=== PATIENT | male | born 1990 | race Caucasian/White ===

== ENCOUNTER 2020-05-03 12:28 | Emergency (ER) | payer OTHER ==
[2020-05-03 12:44] VITALS: RESP 18
[2020-05-03] MEDS ORDERED: SODIUM CHLORIDE 0.9% 500 ML 500 ML IV STA (13:10)
[2020-05-03] MEDS ORDERED: ASPIRIN 81 MG PO STA (13:11)
[2020-05-03 13:23] LABS: Basophils % (A) 1 %; Eosinophils # (A) 0.1 k/uL (0-0.7); Eosinophils % (A) 1 %; HGB 13.5 gm/dL (13.0-17.5); Lymphocytes # (A) 1.4 k/uL (1.0-4.8); Lymphocytes % (A) 24 %; MCH 29.8 pg (25.0-35.0); MCHC 33.7 g/dL (31.0-37.0); MCV 88.4 fL (80.0-100.0); Mean Platelet Volume 7.4; Monocytes # (A) 0.3 k/uL (0-1.0); Monocytes % (A) 6 %; Neutrophils # (A) 3.9 k/uL (1.3-7.7); Neutrophils % (A) 66 %; Platelet Count 310 k/uL (150-450); RBC 4.52 m/uL (4.30-5.90); RDW 14.1 % (11.5-15.5); WBC 5.8 k/uL (3.8-10.6)
[2020-05-03 13:31] LABS: ALT 25 U/L (4-49); African American GFR (CKD) >90 (>60 ml/min/1.73 sqM); Albumin 4.5 g/dL (3.5-5.0); Anion Gap 8 mmol/L; Blood Urea Nitrogen 12 mg/dL (9-20); Calcium 9.7 mg/dL (8.4-10.2); Carbon Dioxide 28 mmol/L (22-30); Chloride 103 mmol/L (98-107); Glucose 104 mg/dL (74-99); Non-African American GFR(CKD) >90 (>60 ml/min/1.73 sqM); Partial Thromboplastin Time 25.9 sec (22.0-30.0); Prothrombin Time 10.7 sec (9.0-12.0); Sodium 139 mmol/L (137-145); Total Bilirubin 0.7 mg/dL (0.2-1.3); Total Protein 7.5 g/dL (6.3-8.2)
[2020-05-03 13:50] LABS: AST 34 U/L (17-59); Alkaline Phosphatase 77 U/L (38-126); Magnesium 2.1 mg/dL (1.6-2.3); Potassium 4.1 mmol/L (3.5-5.1)
--- NOTE | 2020-05-03 14:11 | CT ---
EXAMINATION TYPE: CT chest angio for PE DATE OF EXAM: 05/03/2020 COMPARISON: None HISTORY: Suspected pulmonary embolus. Chest pain. Vomiting. CONTRAST: CT Chest for pulmonary embolism performed with with IV Contrast, patient injected with 100 mL of Isov ue 370. MIP images were generated on a separate workstation. FINDINGS: LUNGS: The lungs are grossly clear, there is no concerning parenchymal mass or nodule identified. Mi nimal bibasilar atelectasis. There is no pleural effusion or pneumothorax seen. The tracheobronchial tree is patent. MEDIASTINUM: There is satisfactory enhancement of the pulmonary artery and its branches, there is no CT evidence for pulmonary embolism. No thoracic aortic aneurysm. There are no greater than 1 cm julián r or mediastinal lymph nodes. Cardiac size normal. No pericardial effusion is seen. OTHER: No additional significant abnormality is seen. Incomplete visualization of the bilateral adre nal glands. IMPRESSION: No evidence of pulmonary embolus or acute pulmonary process.
[2020-05-03] MEDS ORDERED: LORazepam 1 MG TAB PO STA ×2 (14:35→16:05)
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
[2020-05-03 16:51] VITALS: PULSE 78
[2020-05-03 17:08] LABS: Appearance,Urine Clear (Clear); Bilirubin,Urine Negative (Negative); Blood,Urine Negative (Negative); Color,Urine Light Yellow; Glucose,Urine (UA) Negative (Negative); Ketones,Urine Negative (Negative); Leukocyte Esterase,Urine Negative (Negative); Nitrite,Urine Negative (Negative); PH, Urine 8.5 (5.0-8.0); Protein,Urine Negative (Negative); Specific Gravity,Urine 1.037 (1.001-1.035); Urobilinogen,Urine <2.0 mg/dL (<2.0)
[2020-05-03 17:27] VITALS: BP 119/83; TEMP 97.3
== END 2020-05-03 17:18 | disposition home or self-care (01) ==
LOC: EC 12:28
DX: F41.9 Anxiety disorder, unspecified (principal); R07.89 Other chest pain; F32.9 Major depressive disorder, single episode, unspecified; T79.A0XA Compartment syndrome, unspecified, initial encounter; S70.12XA Contusion of left thigh, initial encounter; F17.200 Nicotine dependence, unspecified, uncomplicated; Z79.899 Other long term (current) drug therapy; Z53.29 Procedure and treatment not carried out because of patient's decision for other reasons; Z20.828 Contact with and (suspected) exposure to other viral communicable diseases; W19.XXXA Unspecified fall, initial encounter
CPT/HCPCS: 36415; 93005; 83880; 80053; 83735; 84484; 85025; 85610; 85730; 81003; 87040; 71275; 99285; U0003; Q9967

== ENCOUNTER 2020-05-07 23:41 | Emergency (ER) | payer OTHER ==
[2020-05-07 23:53] VITALS: TEMP 98.1
[2020-05-08 00:02] VITALS: BP 140/70; PULSE 100; RESP 18
[2020-05-08] MEDS ORDERED: LORazepam 2 MG/ML INJ IM STA (00:06)
--- NOTE | 2020-05-08 00:11 | ED ---
General Adult HPI - General Chief complaint: Anxiety Stated complaint: anxiety Time Seen by Provider: 05/07/20 23:59 Source: patient, family, RN notes reviewed Mode of arrival: ambulatory Limitations: no limitations - History of Present Illness Initial comments: 29-year-old male with a past medical history of PE in November presents to the emergency department for anxiety. Patient reports that he moved to this area week and a half ago and in his move lost all of his anxiety and depression medications. Patient reports he was supposed be taking Klonopin 3 times a day as well as when necessary anxiety meds. Patient reports that he was seen here. Given antianxiety medication and he did feel improvement however anxiety started again a couple days ago. Patient states he is very shaky and feels very on edge. Patient does have a history of PE in November 2023 which he refuses to take Xarelto. - Related Data Home Medications Medication Instructions Recorded Confirmed Sertraline HCl [Zoloft] 200 mg PO DAILY 05/03/20 05/03/20 buPROPion XL [Wellbutrin Xl] 300 mg PO DAILY 05/03/20 05/03/20 clonazePAM 1 mg PO TID 05/03/20 05/03/20 Previous Rx's Medication Instructions Recorded Sertraline [Zoloft] 200 mg PO DAILY 7 Days #14 tab 05/03/20 Allergies Allergy/AdvReac Type Severity Reaction Status Date / Time No Known Allergies Allergy Verified 05/07/20 23:52 Review of Systems ROS Statement: Those systems with pertinent positive or pertinent negative responses have been documented in the HPI. ROS Other: All systems not noted in ROS Statement are negative. Past Medical History Past Medical History: Pulmonary Embolus (PE) Additional Past Medical History / Comment(s): PE 2019 History of Any Multi-Drug Resistant Organisms: None Reported Past Surgical History: No Surgical Hx Reported Additional Past Surgical History / Comment(s): Right upper leg Fasciotomy 2019 Past Psychological History: Anxiety, Depression Smoking Status: Current some day smoker Past Alcohol Use History: None Reported Past Drug Use History: Marijuana General Exam Limitations: no limitations General appearance: anxious Head exam: Present: atraumatic, normocephalic, normal inspection Eye exam: Present: normal appearance, PERRL, EOMI. Absent: scleral icterus, conjunctival injection, periorbital swelling ENT exam: Present: normal exam, mucous membranes moist Neck exam: Present: normal inspection, full ROM. Absent: tenderness, meningismus, lymphadenopathy Respiratory exam: Present: normal lung sounds bilaterally. Absent: respiratory distress, wheezes, rales, rhonchi, stridor Cardiovascular Exam: Present: regular rate, normal rhythm, normal heart sounds. Absent: systolic murmur, diastolic murmur, rubs, gallop, clicks GI/Abdominal exam: Present: soft, normal bowel sounds. Absent: distended, tenderness, guarding, rebound, rigid Neurological exam: Present: alert Psychiatric exam: Present: anxious Course Vital Signs 05/07/20 05/08/20 23:46 00:00 Temperature 98.1 F Pulse Rate 87 100 Respiratory 22 18 Rate Blood Pressure 104/66 140/70 O2 Sat by Pulse 100 95 Oximetry Medical Decision Making - Medical Decision Making Patient had a CT of the chest obtained about 4 days ago that showed no evidence of pulmonary embolism or acute pulmonary process. Laboratory examination at that time was also unremarkable. Spangler virus negative. Patient was given oral Ativan for anxiety. He has a maps score greater than 600 and reports he lost his medication. Patient is requesting a new prescription. Patient is aware that he will not be given a new prescription and needs to follow-up with his doctor for this. Disposition Clinical Impression: Acute anxiety Disposition: HOME SELF-CARE Condition: Good Instructions (If sedation given, give patient instructions): Generalized Anxiety Disorder (ED) Additional Instructions: Please follow-up with your primary care provider for your anxiety medication refill. Return to the emergency room for worsening symptoms. Is patient prescribed a controlled substance at d/c from ED?: No Referrals: Kaela Aabrca MD [REFERRING] - 1-2 days Time of Disposition: 00:36
[2020-05-08] MEDS ORDERED: LORazepam 1 MG TAB PO STA (00:13)
== END 2020-05-08 00:48 | disposition home or self-care (01) ==
LOC: EC 23:41
DX: F41.9 Anxiety disorder, unspecified (principal); F32.9 Major depressive disorder, single episode, unspecified; F17.200 Nicotine dependence, unspecified, uncomplicated; Z79.899 Other long term (current) drug therapy; Z86.711 Personal history of pulmonary embolism
CPT/HCPCS: 99283

== ENCOUNTER 2020-06-23 15:10 | Emergency (ER) | payer OTHER ==
[2020-06-23 15:19] VITALS: RESP 16
[2020-06-23] MEDS ORDERED: ALPRAZolam 1 MG TAB PO STA (15:28)
[2020-06-23] MEDS ORDERED: CEPHALEXIN 500 MG CAP PO STA (15:28)
--- NOTE | 2020-06-23 15:30 | ED ---
General Adult HPI - General Chief complaint: Extremity Problem,Nontraumatic Stated complaint: L Ankle Swelling Time Seen by Provider: 06/23/20 15:22 Source: patient Mode of arrival: ambulatory Limitations: no limitations - History of Present Illness Initial comments: Dictation was produced using [employer] dictation software. please excuse any grammatical, word or spelling errors. This patient was cared for during a federal and state declared state of emergency secondary to Covid 19 Chief Complaint: 29-year-old male with past medical history of right leg fasciotomy, but infection presents with left lower leg pain. 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 He has history of right lower extremity infection requiring fasciotomy. Patient states that today he noted that there was some drainage and pain to right over his left heel. He is concerned that he is having another repeat event of lower extremity infection. Patient denies any constitutional symptoms. He states that he works on his feet and has ill fitting shoes that caused the skin breakdown to his left heel. The ROS documented in this emergency department record has been reviewed and confirmed by me. Those systems with pertinent positive or negative responses have been documented in the HPI. All other systems are other negative and/or noncontributory. PHYSICAL EXAM: General Impression: Alert and oriented x3, not in acute distress HEENT: Normocephalic atraumatic, extra-ocular movements intact, pupils equal and reactive to light bilaterally, mucous membranes moist. Cardiovascular: Heart regular rate and rhythm Chest: Able to complete full sentences, no retractions, no tachypnea Abdomen: abdomen soft, non-tender, non-distended, no organomegaly Musculoskeletal: Pulses present and equal in all extremities, no peripheral edema Left heel: Abrasion to the skin just over the distal Achilles insertion, there is mild warmth and erythema to the area, no fluctuance Motor: no focal deficits noted Neurological: CN II-XII grossly intact, no focal motor or sensory deficits noted Skin: Intact with no visualized rashes Psych: Normal affect and mood ED course: 29-year-old male presents with cellulitic symptoms of the left lower extremity. As upon arrival are within acceptable limits. Patient states he feels anxious. Patient given Xanax and Keflex X-rays unremarkable. There does appear to be soft tissue swelling. Patient given prescription for Keflex. He is advised follow-up with his primary care physician upon arrival. Return parameters discussed. Patient will be discharged. - Related Data Home Medications Medication Instructions Recorded Confirmed Sertraline HCl [Zoloft] 200 mg PO DAILY 05/03/20 05/03/20 buPROPion XL [Wellbutrin Xl] 300 mg PO DAILY 05/03/20 05/03/20 clonazePAM 1 mg PO TID 05/03/20 05/03/20 Previous Rx's Medication Instructions Recorded Sertraline [Zoloft] 200 mg PO DAILY 7 Days #14 tab 05/03/20 Cephalexin [Keflex] 500 mg PO Q6HR 5 Days #20 cap 06/23/20 Allergies Allergy/AdvReac Type Severity Reaction Status Date / Time No Known Allergies Allergy Verified 06/23/20 15:16 Review of Systems ROS Statement: Those systems with pertinent positive or pertinent negative responses have been documented in the HPI. ROS Other: All systems not noted in ROS Statement are negative. Past Medical History Past Medical History: Pulmonary Embolus (PE) Additional Past Medical History / Comment(s): PE 2019 History of Any Multi-Drug Resistant Organisms: None Reported Past Surgical History: No Surgical Hx Reported Additional Past Surgical History / Comment(s): Right upper leg Fasciotomy 2019 Past Psychological History: Anxiety, Depression Smoking Status: Current some day smoker Past Alcohol Use History: None Reported Past Drug Use History: Marijuana General Exam Limitations: no limitations Course Vital Signs 06/23/20 15:16 Temperature 98.1 F Pulse Rate 104 H Respiratory 16 Rate Blood Pressure 127/79 O2 Sat by Pulse 99 Oximetry Disposition Clinical Impression: Cellulitis Disposition: HOME SELF-CARE Condition: Good Instructions (If sedation given, give patient instructions): Cellulitis (ED) Prescriptions: Cephalexin [Keflex] 500 mg PO Q6HR 5 Days #20 cap Is patient prescribed a controlled substance at d/c from ED?: No Referrals: None,Stated [Primary Care Provider] - 1-2 days Time of Disposition: 16:06
--- NOTE | 2020-06-23 15:59 | XR ---
Left ankle HISTORY: Swelling 3 views of the left ankle There is soft tissue swelling present. Bone mineralization, joint spaces and alignment are maintained . No fracture or dislocation. IMPRESSION: Soft tissue swelling.
[2020-06-23] MEDS ORDERED: CEPHALEXIN 500MG STARTER PACK 4 CAP BTL PO STA (16:07)
[2020-06-23 16:17] VITALS: BP 120/78; PULSE 79; TEMP 98
== END 2020-06-23 16:16 | disposition home or self-care (01) ==
LOC: EC 15:10
DX: L03.116 Cellulitis of left lower limb (principal); F41.9 Anxiety disorder, unspecified; F32.9 Major depressive disorder, single episode, unspecified; F17.200 Nicotine dependence, unspecified, uncomplicated; Z79.899 Other long term (current) drug therapy
CPT/HCPCS: 99283

== ENCOUNTER 2020-07-03 10:39 | Emergency (ER) | payer OTHER ==
[2020-07-03 11:36] VITALS: BP 144/60; PULSE 89; RESP 18; TEMP 97.9
--- NOTE | 2020-07-03 12:41 | ED ---
Skin/Abscess/FB HPI - General Chief complaint: Skin/Abscess/Foreign Body Stated complaint: recheck - rash Time Seen by Provider: 07/03/20 12:01 Source: patient, RN notes reviewed, old records reviewed Mode of arrival: ambulatory Limitations: no limitations - History of Present Illness Initial comments: 29-year-old male presents the ER today for evaluation with chief complaint of rash over arms. He reports it sore. Again has multiple scab-like areas with erythema that he's been taking it. He reports he is treated for cellulitis on the left ankle antibiotics reports that that improved. He states that he is now having this rash. He also complains of anxiety and requests some medication to help with his anxiety currently. - Related Data Home Medications Medication Instructions Recorded Confirmed Sertraline HCl [Zoloft] 200 mg PO DAILY 05/03/20 05/03/20 buPROPion XL [Wellbutrin Xl] 300 mg PO DAILY 05/03/20 05/03/20 clonazePAM 1 mg PO TID 05/03/20 05/03/20 Previous Rx's Medication Instructions Recorded Sertraline [Zoloft] 200 mg PO DAILY 7 Days #14 tab 05/03/20 Cephalexin [Keflex] 500 mg PO Q6HR 5 Days #20 cap 06/23/20 Mupirocin 2% Oint [Bactroban 2% 1 applic TOPICAL TID #60 gm 07/03/20 Oint] Sulfamethox-Tmp 800-160Mg [Bactrim 1 tab PO DAILY #20 tab 07/03/20 DS 800-160 mg] Allergies Allergy/AdvReac Type Severity Reaction Status Date / Time No Known Allergies Allergy Verified 07/03/20 11:35 Review of Systems ROS Statement: Those systems with pertinent positive or pertinent negative responses have been documented in the HPI. ROS Other: All systems not noted in ROS Statement are negative. Past Medical History Past Medical History: Pulmonary Embolus (PE) Additional Past Medical History / Comment(s): PE 2019 History of Any Multi-Drug Resistant Organisms: None Reported Past Surgical History: No Surgical Hx Reported Additional Past Surgical History / Comment(s): Right upper leg Fasciotomy 2019 Past Psychological History: Anxiety, Depression Smoking Status: Current some day smoker Past Alcohol Use History: None Reported Past Drug Use History: Marijuana General Exam - General Exam Comments Initial Comments: 29-year-old male. Anxious. Limitations: no limitations General appearance: alert, in no apparent distress Head exam: Present: atraumatic, normocephalic, normal inspection Eye exam: Present: normal appearance, PERRL, EOMI. Absent: scleral icterus, conjunctival injection, periorbital swelling ENT exam: Present: normal exam, mucous membranes moist Neck exam: Present: normal inspection. Absent: tenderness, meningismus, lymphadenopathy Respiratory exam: Present: normal lung sounds bilaterally. Absent: respiratory distress, wheezes, rales, rhonchi, stridor Cardiovascular Exam: Present: regular rate, normal rhythm, normal heart sounds. Absent: systolic murmur, diastolic murmur, rubs, gallop, clicks GI/Abdominal exam: Present: soft, normal bowel sounds. Absent: distended, tenderness, guarding, rebound, rigid Extremities exam: Present: normal inspection, full ROM, normal capillary refill, other (Jeremy has multiple papular scab-like lesions over her arms for appearance from Patient picking at these.). Absent: tenderness, pedal edema, joint swelling, calf tenderness Back exam: Present: normal inspection Neurological exam: Present: alert, oriented X3, other Psychiatric exam: Present: normal affect, normal mood, other (abrasive behaviour and attitude) Skin exam: Present: warm, dry, intact, normal color. Absent: rash Course Vital Signs 07/03/20 11:31 Temperature 97.9 F Pulse Rate 89 Respiratory 18 Rate Blood Pressure 144/60 O2 Sat by Pulse 100 Oximetry Medical Decision Making - Medical Decision Making 29-year-old male present today with multiple scab-like lesions from the clinic picking over bilateral arms some areas on chest. He states that he's had this for the past week. He was treated recently with Keflex for right ankle cellulitis. He reports that has now improved. At this time Patient appears to have a folliculitis and was treated with Bactrim. Advised the Patient to stop picking at his skin and will also treat the Patient with Bactroban ointment. Advised to follow-up with dermatology if symptoms continue to persist. Was given 1 Ativan. He does have abrasive attitude toward staff. Disposition Clinical Impression: Folliculitis Disposition: HOME SELF-CARE Condition: Good Instructions (If sedation given, give patient instructions): Folliculitis (ED) Additional Instructions: Patient needs to use has antibacterial soap such as Dial in the shower. Patient needs to follow-up with dermatology if symptoms continue to persist. Take the antibiotic as prescribed. Return to ED if any alarming signs or symptoms occur. Prescriptions: Sulfamethox-Tmp 800-160Mg [Bactrim DS 800-160 mg] 1 tab PO DAILY #20 tab Mupirocin 2% Oint [Bactroban 2% Oint] 1 applic TOPICAL TID #60 gm Is patient prescribed a controlled substance at d/c from ED?: No Referrals: Pablito Valdez DO [Primary Care Provider] - 1-2 days Cheryl Wright MD [STAFF PHYSICIAN] - 1-2 days Time of Disposition: 12:40
[2020-07-03] MEDS ORDERED: LORazepam 1 MG TAB PO STA (12:44)
== END 2020-07-03 12:55 | disposition home or self-care (01) ==
LOC: EC 10:39
DX: L73.9 Follicular disorder, unspecified (principal); L03.115 Cellulitis of right lower limb; F17.200 Nicotine dependence, unspecified, uncomplicated; F41.9 Anxiety disorder, unspecified; F32.9 Major depressive disorder, single episode, unspecified; Z86.711 Personal history of pulmonary embolism
CPT/HCPCS: 99283

== ENCOUNTER 2020-07-12 09:37 | Emergency (ER) | payer OTHER ==
[2020-07-12 09:43] VITALS: TEMP 97.6
[2020-07-12] MEDS ORDERED: clonazePAM 1 MG TAB PO STA (09:52)
[2020-07-12] MEDS ORDERED: ONDANSETRON ODT 4 MG TAB PO STA (09:52)
--- NOTE | 2020-07-12 09:54 | ED ---
General Adult HPI - General Source: patient, RN notes reviewed Mode of arrival: ambulatory Limitations: no limitations <Jeff Escobar - Last Filed: 07/12/20 12:53> <Jose Alberto Velasquez - Last Filed: 07/12/20 15:01> - General Chief complaint: Anxiety Stated complaint: anxiety Time Seen by Provider: 07/12/20 09:44 - History of Present Illness Initial comments: 29-year-old male presents emergency Department chief complaint of anxiety depression bipolar disorder. Patient states she's been off all his medications for over one week. Patient states he was recent hospitalized for similar reasons. Patient states is not suicidal but he states he cannot tolerate ligamentous. Patient denies any fevers chills he states she's had some nausea is is withdrawing from his medications. He does admit to marijuana use and mild alcohol use. Denies any abdominal pain chest pain. Patient offers no other complaints. (Jeff Escobar) - Related Data Home Medications Medication Instructions Recorded Confirmed buPROPion XL [Wellbutrin Xl] 300 mg PO DAILY 05/03/20 07/12/20 clonazePAM 1 mg PO TID 05/03/20 07/12/20 Sertraline [Zoloft] 300 mg PO DAILY 07/12/20 07/12/20 Previous Rx's Medication Instructions Recorded Sertraline [Zoloft] 300 mg PO DAILY #4 tab 07/12/20 buPROPion HCL [Wellbutrin XL] 300 mg PO DAILY #4 tab 07/12/20 clonazePAM 1 mg PO TID 4 Days #12 tab 07/12/20 Allergies Allergy/AdvReac Type Severity Reaction Status Date / Time No Known Allergies Allergy Verified 07/12/20 10:44 Review of Systems ROS Other: All systems not noted in ROS Statement are negative. <Jeff Escobar - Last Filed: 07/12/20 12:53> ROS Other: All systems not noted in ROS Statement are negative. <Jose Alberto Velasquez - Last Filed: 07/12/20 15:01> ROS Statement: Those systems with pertinent positive or pertinent negative responses have been documented in the HPI. Past Medical History Past Medical History: Pulmonary Embolus (PE) Additional Past Medical History / Comment(s): PE 2020 History of Any Multi-Drug Resistant Organisms: None Reported Past Surgical History: No Surgical Hx Reported Additional Past Surgical History / Comment(s): Right upper leg Fasciotomy 2020 Past Psychological History: Anxiety, Bipolar, Depression Smoking Status: Current some day smoker Past Alcohol Use History: None Reported Past Drug Use History: Marijuana <JosephJeff savage - Last Filed: 07/12/20 12:53> General Exam Limitations: no limitations General appearance: alert, in no apparent distress Head exam: Present: atraumatic, normocephalic, normal inspection Eye exam: Present: normal appearance, PERRL, EOMI. Absent: scleral icterus, conjunctival injection, periorbital swelling ENT exam: Present: normal exam, normal oropharynx, mucous membranes moist Neck exam: Present: normal inspection, full ROM. Absent: tenderness, meningismus, lymphadenopathy Respiratory exam: Present: normal lung sounds bilaterally. Absent: respiratory distress, wheezes, rales, rhonchi, stridor Cardiovascular Exam: Present: normal rhythm, tachycardia, normal heart sounds. Absent: systolic murmur, diastolic murmur, rubs, gallop, clicks GI/Abdominal exam: Present: soft, normal bowel sounds. Absent: distended, tenderness, guarding, rebound, rigid Neurological exam: Present: alert, oriented X3, CN II-XII intact Psychiatric exam: Present: anxious, other (Patient is tearful) Skin exam: Present: warm, dry, intact, normal color. Absent: rash <JosephJeff savage - Last Filed: 07/12/20 12:53> Course Vital Signs 07/12/20 07/12/20 09:38 12:52 Temperature 97.6 F Pulse Rate 106 H 81 Respiratory 18 16 Rate Blood Pressure 126/71 132/86 O2 Sat by Pulse 100 99 Oximetry Medical Decision Making <Jose Alberto Velasquez - Last Filed: 07/12/20 15:01> - Medical Decision Making The patient was evaluated by the psychiatric service. He currently is not a risk to himself he has been set up with outpatient plan with [facility]. He will be given 4 days of his daily medications which haven't been confirmed. I do agree with the assessment and plan (Jose Alberto Velasquez) - Lab Data Lab Results 07/12/20 Range/Units 10:00 Urine Opiates Screen Not Detected (NotDetected) Ur Oxycodone Screen Not Detected (NotDetected) Urine Methadone Screen Not Detected (NotDetected) Ur Propoxyphene Screen Not Detected (NotDetected) Ur Barbiturates Screen Not Detected (NotDetected) U Tricyclic Antidepress Not Detected (NotDetected) Ur Phencyclidine Scrn Not Detected (NotDetected) Ur Amphetamines Screen Not Detected (NotDetected) U Methamphetamines Scrn Not Detected (NotDetected) U Benzodiazepines Scrn Not Detected (NotDetected) Urine Cocaine Screen Detected H (NotDetected) U Marijuana (THC) Screen Detected H (NotDetected) Disposition <Jeff Escobar - Last Filed: 07/12/20 12:53> Is patient prescribed a controlled substance at d/c from ED?: Yes When asked, does pt state using other controlled substances?: Yes If prescribed controlled substance>3 days was MAPS reviewed?: Yes <Jose Alberto Velasquez - Last Filed: 07/12/20 15:01> Clinical Impression: Situational depression, Acute anxiety Disposition: HOME SELF-CARE Condition: Good Instructions (If sedation given, give patient instructions): Generalized Anxiety Disorder (ED) Prescriptions: clonazePAM 1 mg PO TID 4 Days #12 tab buPROPion HCL [Wellbutrin XL] 300 mg PO DAILY #4 tab Sertraline [Zoloft] 300 mg PO DAILY #4 tab Referrals: Pablito Valdez DO [Primary Care Provider] - 1-2 days
[2020-07-12 10:50] LABS: Amphetamine Screen,Urine Not Detected (NotDetected); Barbiturate Screen,Urine Not Detected (NotDetected); Benzodiazepines Screen,Urine Not Detected (NotDetected); Cocaine Screen,Urine Detected (NotDetected); Methadone Screen, Urine Not Detected (NotDetected); Opiate Screen,Urine Not Detected (NotDetected); Oxycodone Screen, Urine Not Detected (NotDetected); Phencyclidine Screen,Urine Not Detected (NotDetected); Tricyclic Antidepressant,Urine Not Detected (NotDetected); Urn Cannabinoid Scrn Detected (NotDetected)
[2020-07-12 12:54] VITALS: RESP 16
[2020-07-12 15:13] VITALS: BP 132/79; PULSE 103
== END 2020-07-12 15:31 | disposition home or self-care (01) ==
LOC: EC 09:37
DX: F43.21 Adjustment disorder with depressed mood (principal); F41.9 Anxiety disorder, unspecified; F17.200 Nicotine dependence, unspecified, uncomplicated; Z79.899 Other long term (current) drug therapy; Z86.711 Personal history of pulmonary embolism
CPT/HCPCS: 80306; 82075; 99283

== ENCOUNTER 2021-07-24 10:33 | Inpatient (IN) | payer MEDICAID, OTHER ==
--- NOTE | 2021-07-24 11:15 | ED ---
Psych HPI - General Source: patient, RN notes reviewed Mode of arrival: ambulatory <Jeff Escobar - Last Filed: 07/24/21 15:04> <Morales Bullard - Last Filed: 07/25/21 12:03> - General Chief Complaint: Psychiatric Symptoms Stated Complaint: Mental Health Time Seen by Provider: 07/24/21 10:53 - History of Present Illness Initial Comments: Patient is a 30-year-old male presenting to the ED for increased anxiety, depression. Patient states that he has been out of his medication for about a week and an anxiety has increased the last 2 days. Patient reports suicidal thoughts at this time but with no plan. Patient reports he has been seen at [facility], but reports "has been seen a while". Patient reports taking Klonopin, Abilify and Wellbutrin normally for depression and bipolar disorder but has been out of all his medications. Patient reports the medication worked well when he was on it. (Jeff Escobar) - Related Data Home Medications Medication Instructions Recorded Confirmed ARIPiprazole [Abilify] 15 mg PO DAILY 07/24/21 07/24/21 Previous Rx's Medication Instructions Recorded buPROPion HCL [Wellbutrin XL] 300 mg PO DAILY #4 tab 07/12/20 clonazePAM 1 mg PO TID 4 Days #12 tab 07/12/20 Allergies Allergy/AdvReac Type Severity Reaction Status Date / Time No Known Allergies Allergy Verified 07/24/21 11:28 Review of Systems ROS Other: All systems not noted in ROS Statement are negative. <Jeff Escobar - Last Filed: 07/24/21 15:04> ROS Other: All systems not noted in ROS Statement are negative. <Morales Bullard - Last Filed: 07/25/21 12:03> ROS Statement: Those systems with pertinent positive or pertinent negative responses have been documented in the HPI. Past Medical History Past Medical History: Pulmonary Embolus (PE) Additional Past Medical History / Comment(s): PE 2019 History of Any Multi-Drug Resistant Organisms: None Reported Past Surgical History: No Surgical Hx Reported Additional Past Surgical History / Comment(s): Right upper leg Fasciotomy 2019 Past Psychological History: Anxiety, Bipolar, Depression Smoking Status: Current some day smoker Past Alcohol Use History: None Reported Past Drug Use History: Marijuana <Jeff Escobar - Last Filed: 07/24/21 15:04> General Exam Limitations: no limitations General appearance: alert, in no apparent distress, anxious Respiratory exam: Present: normal lung sounds bilaterally. Absent: respiratory distress, wheezes, rales, rhonchi, stridor Cardiovascular Exam: Present: regular rate, normal rhythm, normal heart sounds. Absent: systolic murmur, diastolic murmur, rubs, gallop, clicks Neurological exam: Present: alert, oriented X3 Psychiatric exam: Present: depressed, anxious, suicidal ideation (No plan) Skin exam: Present: warm, dry, intact, normal color. Absent: rash <Jeff Escobar - Last Filed: 07/24/21 15:04> Course Vital Signs 07/24/21 07/24/21 07/25/21 10:55 18:25 04:00 Temperature 97.9 F 98.4 F 97.8 F Pulse Rate 91 81 86 Respiratory 18 18 Rate Blood Pressure 126/84 106/54 123/63 O2 Sat by Pulse 100 99 100 Oximetry 07/25/21 07:45 Temperature 98.3 F Pulse Rate 95 Respiratory 16 Rate Blood Pressure 113/69 O2 Sat by Pulse 99 Oximetry Medical Decision Making - Lab Data Result diagrams: 07/24/21 14:09 07/24/21 14:09 <Jeff Escobar - Last Filed: 07/24/21 15:04> - Lab Data Result diagrams: 07/24/21 14:09 07/24/21 14:09 <Morales Bullard - Last Filed: 07/25/21 12:03> - Medical Decision Making Patient will be transfused psychiatric facility. (Jeff Escobar) Patient's address was updated. He meets criteria for inpatient psychiatric admission in our facility. Patient will be admitted to [address] (Morales Bullard) - Lab Data Lab Results 07/24/21 07/24/21 07/24/21 Range/Units 12:14 12:47 14:06 WBC (3.8-10.6) k/uL RBC (4.30-5.90) m/uL Hgb (13.0-17.5) gm/dL Hct (39.0-53.0) % MCV (80.0-100.0) fL MCH (25.0-35.0) pg MCHC (31.0-37.0) g/dL RDW (11.5-15.5) % Plt Count (150-450) k/uL MPV Neutrophils % % Lymphocytes % % Monocytes % % Eosinophils % % Basophils % % Neutrophils # (1.3-7.7) k/uL Lymphocytes # (1.0-4.8) k/uL Monocytes # (0-1.0) k/uL Eosinophils # (0-0.7) k/uL Basophils # (0-0.2) k/uL Sodium (137-145) mmol/L Potassium (3.5-5.1) mmol/L Chloride (98-107) mmol/L Carbon Dioxide (22-30) mmol/L Anion Gap mmol/L BUN (9-20) mg/dL Creatinine (0.66-1.25) mg/dL Est GFR (CKD-EPI)AfAm (>60 ml/min/1.73 sqM) Est GFR (CKD-EPI)NonAf (>60 ml/min/1.73 sqM) Glucose (74-99) mg/dL Calcium (8.4-10.2) mg/dL Urine Color Light Yellow Urine Appearance Clear (Clear) Urine pH 8.0 (5.0-8.0) Ur Specific [place] 1.009 (1.001-1.035) Urine Protein Negative (Negative) Urine Glucose (UA) Negative (Negative) Urine Ketones Negative (Negative) Urine Blood Negative (Negative) Urine Nitrite Negative (Negative) Urine Bilirubin Negative (Negative) Urine Urobilinogen <2.0 (<2.0) mg/dL Ur Leukocyte Esterase Negative (Negative) Urine Opiates Screen Detected H (NotDetected) Ur Oxycodone Screen Not Detected (NotDetected) Urine Methadone Screen Not Detected (NotDetected) Ur Propoxyphene Screen Not Detected (NotDetected) Ur Barbiturates Screen Not Detected (NotDetected) U Tricyclic Antidepress Not Detected (NotDetected) Ur Phencyclidine Scrn Not Detected (NotDetected) Ur Amphetamines Screen Not Detected (NotDetected) U Methamphetamines Scrn Not Detected (NotDetected) U Benzodiazepines Scrn Not Detected (NotDetected) Urine Cocaine Screen Not Detected (NotDetected) U Marijuana (THC) Screen Detected H (NotDetected) Coronavirus (PCR) Not Detected (Not Detectd) 07/24/21 07/24/21 Range/Units 14:09 14:09 WBC 5.8 (3.8-10.6) k/uL RBC 4.51 (4.30-5.90) m/uL Hgb 13.9 (13.0-17.5) gm/dL Hct 39.3 (39.0-53.0) % MCV 87.1 (80.0-100.0) fL MCH 30.7 (25.0-35.0) pg MCHC 35.2 (31.0-37.0) g/dL RDW 13.4 (11.5-15.5) % Plt Count 358 (150-450) k/uL MPV 7.7 Neutrophils % 72 % Lymphocytes % 22 % Monocytes % 3 % Eosinophils % 0 % Basophils % 1 % Neutrophils # 4.2 (1.3-7.7) k/uL Lymphocytes # 1.3 (1.0-4.8) k/uL Monocytes # 0.2 (0-1.0) k/uL Eosinophils # 0.0 (0-0.7) k/uL Basophils # 0.0 (0-0.2) k/uL Sodium 137 (137-145) mmol/L Potassium 4.6 (3.5-5.1) mmol/L Chloride 102 (98-107) mmol/L Carbon Dioxide 29 (22-30) mmol/L Anion Gap 6 mmol/L BUN 7 L (9-20) mg/dL Creatinine 0.62 L (0.66-1.25) mg/dL Est GFR (CKD-EPI)AfAm >90 (>60 ml/min/1.73 sqM) Est GFR (CKD-EPI)NonAf >90 (>60 ml/min/1.73 sqM) Glucose 119 H (74-99) mg/dL Calcium 10.0 (8.4-10.2) mg/dL Urine Color Urine Appearance (Clear) Urine pH (5.0-8.0) Ur Specific [place] (1.001-1.035) Urine Protein (Negative) Urine Glucose (UA) (Negative) Urine Ketones (Negative) Urine Blood (Negative) Urine Nitrite (Negative) Urine Bilirubin (Negative) Urine Urobilinogen (<2.0) mg/dL Ur Leukocyte Esterase (Negative) Urine Opiates Screen (NotDetected) Ur Oxycodone Screen (NotDetected) Urine Methadone Screen (NotDetected) Ur Propoxyphene Screen (NotDetected) Ur Barbiturates Screen (NotDetected) U Tricyclic Antidepress (NotDetected) Ur Phencyclidine Scrn (NotDetected) Ur Amphetamines Screen (NotDetected) U Methamphetamines Scrn (NotDetected) U Benzodiazepines Scrn (NotDetected) Urine Cocaine Screen (NotDetected) U Marijuana (THC) Screen (NotDetected) Coronavirus (PCR) (Not Detectd) Disposition <Jeff Escobar - Last Filed: 07/24/21 15:04> <Morales Bullard D - Last Filed: 07/25/21 12:03> Clinical Impression: Depression, Suicidal ideation Disposition: TRANSFER TO PSYCH HOSP/UNIT Referrals: Pablito Valdez DO [Primary Care Provider] - 1-2 days
[2021-07-24 14:16] LABS: Appearance,Urine Clear (Clear); Bilirubin,Urine Negative (Negative); Blood,Urine Negative (Negative); Color,Urine Light Yellow; Glucose,Urine (UA) Negative (Negative); Ketones,Urine Negative (Negative); Leukocyte Esterase,Urine Negative (Negative); Nitrite,Urine Negative (Negative); Protein,Urine Negative (Negative); Specific Gravity,Urine 1.009 (1.001-1.035); Urobilinogen,Urine <2.0 mg/dL (<2.0)
[2021-07-24 14:17] LABS: Urn Cannabinoid Scrn Detected (NotDetected)
[2021-07-24 14:18] LABS: Amphetamine Screen,Urine Not Detected (NotDetected); Barbiturate Screen,Urine Not Detected (NotDetected); Benzodiazepines Screen,Urine Not Detected (NotDetected); Cocaine Screen,Urine Not Detected (NotDetected); Methadone Screen, Urine Not Detected (NotDetected); Opiate Screen,Urine Detected (NotDetected); Oxycodone Screen, Urine Not Detected (NotDetected); Phencyclidine Screen,Urine Not Detected (NotDetected); Tricyclic Antidepressant,Urine Not Detected (NotDetected)
[2021-07-24 14:49] LABS: Potassium 4.6 mmol/L (3.5-5.1); Sodium 137 mmol/L (137-145)
[2021-07-24 14:50] LABS: African American GFR (CKD) >90 (>60 ml/min/1.73 sqM); Anion Gap 6 mmol/L; Blood Urea Nitrogen 7 mg/dL (9-20); Carbon Dioxide 29 mmol/L (22-30); Chloride 102 mmol/L (98-107); Glucose 119 mg/dL (74-99); Non-African American GFR(CKD) >90 (>60 ml/min/1.73 sqM)
[2021-07-24 14:52] LABS: Basophils % (A) 1 %; Eosinophils % (A) 0 %; HCT 39.3 % (39.0-53.0); HGB 13.9 gm/dL (13.0-17.5); Lymphocytes # (A) 1.3 k/uL (1.0-4.8); Lymphocytes % (A) 22 %; MCH 30.7 pg (25.0-35.0); MCHC 35.2 g/dL (31.0-37.0); MCV 87.1 fL (80.0-100.0); Mean Platelet Volume 7.7; Monocytes # (A) 0.2 k/uL (0-1.0); Monocytes % (A) 3 %; Neutrophils # (A) 4.2 k/uL (1.3-7.7); Neutrophils % (A) 72 %; Platelet Count 358 k/uL (150-450); RBC 4.51 m/uL (4.30-5.90); RDW 13.4 % (11.5-15.5); WBC 5.8 k/uL (3.8-10.6)
[2021-07-24] MEDS ORDERED: LORazepam 1 MG TAB PO STA (16:40)
[2021-07-25] MEDS: ARIPiprazole 15 MG TAB PO SCH (08:21)
[2021-07-25] MEDS ORDERED: buPROPion XL 300 MG TAB.ER.24H PO SCH (09:00)
[2021-07-25] MEDS ORDERED: clonazePAM 1 MG TAB PO SCH (09:00)
[2021-07-25] MEDS ORDERED: clonazePAM 0.5 MG TAB PO SCH (09:00)
[2021-07-25] MEDS ORDERED: ACETAMINOPHEN TAB 325 MG TAB PO PRN (13:36)
[2021-07-25] MEDS ORDERED: MAGNESIUM HYDROXIDE 2,400 MG/10 ML CUP PO PRN (13:36)
[2021-07-25] MEDS ORDERED: MAG HYDROX/AL HYDROX/SIMETH 30 ML CUP PO PRN (13:36)
[2021-07-25] MEDS ORDERED: haloperidoL 5 MG TAB PO PRN (13:46)
[2021-07-25] MEDS ORDERED: HALOPERIDOL LACTATE 5 MG/ML 1 ML VIAL IM PRN (13:46)
[2021-07-25] MEDS: cloNIDine HCL 0.1 MG TAB PO PRN (14:12)
[2021-07-25] MEDS: hydrOXYzine pamoate 25 MG CAP PO PRN ×2 (14:12→22:24)
[2021-07-25] MEDS: NICOTINE 14MG/24HR PATCH TRANSDERM SCH (14:12)
[2021-07-25] MEDS: clonazePAM 1 MG TAB PO SCH (20:14)
[2021-07-25] MEDS: NICOTINE GUM (POLACRILEX) 2 MG GUM BUCCAL PRN ×2 (20:23→22:23)
--- NOTE | 2021-07-25 22:32 | P.CONS ---
History of Present Illness - Reason for Consult Consult date: 07/25/21 - History of Present Illness Patient is a 30-year-old male with a PMH of anxiety, depression, and polysubstance abuse who presents to the emergency room with suicidal ideation. The patient was admitted to the mental health unit where he was seen and evaluated. He reports that he is tired of his ongoing substance use especially heroin which he last used for 5 days ago. He wishes to go to a rehab facility following his discharge. He denied any physical complaints. He denied chest discomfort, shortness of breath or fever, chills, cough, nausea, vomiting, abdominal pain or diarrhea. He denied any additional substance use the reports smoking half pack of cigarettes daily. Laboratory evaluation was reviewed. Review of systems: Pertinent positives and negatives as discussed in HPI, a complete review of systems was performed and all other systems are negative. Physical examination: General: non toxic, no distress, appears at stated age, normal weight Derm: no unusual rashes/lesions no unusual ecchymoses, warm, dry Head: atraumatic, normocephalic, symmetric Eyes: EOMI, no lid lag, anicteric sclera, pupils equal round reactive to light ENT: Nose and ears atraumatic, no thrush, no pharyngeal erythema Neck: No thyromegaly, no cervical lymphadenopathy, trachea midline, supple Mouth: no lip lesion, mucus membranes moist Cardiovascular: S1S2 reg, no murmur, positive posterior tibial pulse bilateral, no edema, capillary refill less than 2 seconds Lungs: CTA bilateral, no rhonchi, no rales , no accessory muscle use Abdominal: soft, nontender to palpation, no guarding, no appreciable organomegaly, normal bowel sounds Ext: no gross muscle atrophy, muscle strength 5 out of 5 in all 4 extremities grossly, no contractures, Neuro: CN II-XI grossly intact, light touch intact all 4 extremities, finger to nose within normal limits, Psych: Alert, oriented, appropriate affect Assessment/plan Polysubstance abuse, tobacco abuse -Strongly advised on importance of cessation Depression and suicidal ideation -As per psychiatry Thank you for allowing us to participate in the care of this patient. We will follow peripherally. Do not hesitate to contact us with questions. Someone can be reached from the [facility] hospitalist group at all hours of the day at [phone]. Past Medical History Past Medical History: Pulmonary Embolus (PE) Additional Past Medical History / Comment(s): PE 2019 History of Any Multi-Drug Resistant Organisms: None Reported Past Surgical History: No Surgical Hx Reported Additional Past Surgical History / Comment(s): Right upper leg Fasciotomy 2019 Past Anesthesia/Blood Transfusion Reactions: No Reported Reaction Past Psychological History: Anxiety, Bipolar, Depression Smoking Status: Current some day smoker Past Alcohol Use History: None Reported Past Drug Use History: Marijuana Medications and Allergies Home Medications Medication Instructions Recorded Confirmed Type buPROPion HCL [Wellbutrin XL] 300 mg PO DAILY #4 tab 07/12/20 07/24/21 Rx clonazePAM 1 mg PO TID 4 Days #12 tab 07/12/20 07/24/21 Rx ARIPiprazole [Abilify] 15 mg PO DAILY 07/24/21 07/24/21 History Allergies Allergy/AdvReac Type Severity Reaction Status Date / Time No Known Allergies Allergy Verified 07/25/21 16:45 Physical Exam Vitals: Vital Signs Temp Pulse Pulse Resp BP BP Pulse Ox 07/25/21 15:29 97.9 F 83 18 111/69 99 07/25/21 07:45 98.3 F 95 16 113/69 99 07/25/21 04:00 97.8 F 86 18 123/63 100 Intake and Output 07/25/21 07/25/21 07/25/21 06:59 14:59 22:59 Other: Weight 75.54 kg Results CBC & Chem 7: 07/24/21 14:09 07/24/21 14:09
[2021-07-26] MEDS: NICOTINE GUM (POLACRILEX) 2 MG GUM BUCCAL PRN ×5 (03:14→19:47)
[2021-07-26] MEDS: cloNIDine HCL 0.1 MG TAB PO PRN ×3 (03:14→20:38)
[2021-07-26] MEDS: NICOTINE 14MG/24HR PATCH TRANSDERM SCH ×2 (08:06→08:16)
[2021-07-26] MEDS: ARIPiprazole 15 MG TAB PO SCH (08:06)
[2021-07-26] MEDS: clonazePAM 1 MG TAB PO SCH ×2 (08:06→20:38)
[2021-07-26] MEDS: hydrOXYzine pamoate 25 MG CAP PO PRN (10:26)
[2021-07-26] MEDS: buPROPion XL 150 MG TAB.ER.24H PO SCH (10:26)
--- NOTE | 2021-07-26 11:45 | P.HP ---
Psychiatric H&P - . H&P Date: 07/26/21 History & Physical: Allergies Allergy/AdvReac Type Severity Reaction Status Date / Time No Known Allergies Allergy Verified 07/25/21 16:45 Vital Signs Temp 97.5 F L 07/26/21 03:11 Pulse 95 07/26/21 10:25 Resp 17 07/26/21 03:11 BP 122/79 07/26/21 10:25 Pulse Ox 99 07/25/21 15:29 Intake & Output 07/25/21 07/26/21 07/26/21 18:59 06:59 18:59 Weight 75.54 kg Laboratory Last Values WBC 5.8 k/uL (3.8-10.6) 07/24/21 14:09 RBC 4.51 m/uL (4.30-5.90) 07/24/21 14:09 Hgb 13.9 gm/dL (13.0-17.5) 07/24/21 14:09 Hct 39.3 % (39.0-53.0) 07/24/21 14:09 MCV 87.1 fL (80.0-100.0) 07/24/21 14:09 MCH 30.7 pg (25.0-35.0) 07/24/21 14:09 MCHC 35.2 g/dL (31.0-37.0) 07/24/21 14:09 RDW 13.4 % (11.5-15.5) 07/24/21 14:09 Plt Count 358 k/uL (150-450) 07/24/21 14:09 MPV 7.7 07/24/21 14:09 Neutrophils % 72 % 07/24/21 14:09 Lymphocytes % 22 % 07/24/21 14:09 Monocytes % 3 % 07/24/21 14:09 Eosinophils % 0 % 07/24/21 14:09 Basophils % 1 % 07/24/21 14:09 Neutrophils # 4.2 k/uL (1.3-7.7) 07/24/21 14:09 Lymphocytes # 1.3 k/uL (1.0-4.8) 07/24/21 14:09 Monocytes # 0.2 k/uL (0-1.0) 07/24/21 14:09 Eosinophils # 0.0 k/uL (0-0.7) 07/24/21 14:09 Basophils # 0.0 k/uL (0-0.2) 07/24/21 14:09 Sodium 137 mmol/L (137-145) 07/24/21 14:09 Potassium 4.6 mmol/L (3.5-5.1) 07/24/21 14:09 Chloride 102 mmol/L (98-107) 07/24/21 14:09 Carbon Dioxide 29 mmol/L (22-30) 07/24/21 14:09 Anion Gap 6 mmol/L 07/24/21 14:09 BUN 7 mg/dL (9-20) L 07/24/21 14:09 Creatinine 0.62 mg/dL (0.66-1.25) L 07/24/21 14:09 Est GFR (CKD-EPI)AfAm >90 (>60 ml/min/1.73 sqM) 07/24/21 14:09 Est GFR (CKD-EPI)NonAf >90 (>60 ml/min/1.73 sqM) 07/24/21 14:09 Glucose 119 mg/dL (74-99) H 07/24/21 14:09 Calcium 10.0 mg/dL (8.4-10.2) 07/24/21 14:09 TSH 0.314 mIU/L (0.465-4.680) L 07/24/21 01:09 Urine Color Light Yellow 07/24/21 14:06 Urine Appearance Clear (Clear) 07/24/21 14:06 Urine pH 8.0 (5.0-8.0) 07/24/21 14:06 Ur Specific [place] 1.009 (1.001-1.035) 07/24/21 14:06 Urine Protein Negative (Negative) 07/24/21 14:06 Urine Glucose (UA) Negative (Negative) 07/24/21 14:06 Urine Ketones Negative (Negative) 07/24/21 14:06 Urine Blood Negative (Negative) 07/24/21 14:06 Urine Nitrite Negative (Negative) 07/24/21 14:06 Urine Bilirubin Negative (Negative) 07/24/21 14:06 Urine Urobilinogen <2.0 mg/dL (<2.0) 07/24/21 14:06 Ur Leukocyte Esterase Negative (Negative) 07/24/21 14:06 Urine Opiates Screen Detected (NotDetected) H 07/24/21 12:47 Ur Oxycodone Screen Not Detected (NotDetected) 07/24/21 12:47 Urine Methadone Screen Not Detected (NotDetected) 07/24/21 12:47 Ur Propoxyphene Screen Not Detected (NotDetected) 07/24/21 12:47 Ur Barbiturates Screen Not Detected (NotDetected) 07/24/21 12:47 U Tricyclic Antidepress Not Detected (NotDetected) 07/24/21 12:47 Ur Phencyclidine Scrn Not Detected (NotDetected) 07/24/21 12:47 Ur Amphetamines Screen Not Detected (NotDetected) 07/24/21 12:47 U Methamphetamines Scrn Not Detected (NotDetected) 07/24/21 12:47 U Benzodiazepines Scrn Not Detected (NotDetected) 07/24/21 12:47 Urine Cocaine Screen Not Detected (NotDetected) 07/24/21 12:47 U Marijuana (THC) Screen Detected (NotDetected) H 07/24/21 12:47 Coronavirus (PCR) Not Detected (Not Detectd) 07/24/21 12:14 07/26/21 11:38 IDENTIFYING DATA: Patient is a 30-year-old male who currently lives at a three-quarter house is single as 20 and is unemployed. She used to work in construction. HPI: Patient presented to the hospital yesterday and was complaining of depression and suicidal ideations and having been off his medications. EPS nurse petition patient claiming that he was depressed and having suicidal thoughts and also is carrying around a knife. Patient was admitted on a petition and certificate last night and agreeable to speak to inspector automatic typewriter today. He appears to have a constricted affect and claims that he was dealing with depression and not taking his medications. He states that he was finding it difficult to get into his primary care physician's office to get his medications refilled. He states that his PCP is in [place]. He states that he was on Abilify, Klonopin and Wellbutrin. He states that he was feeling suicidal for the past 2 days on and off however is not feeling any suicidal thoughts today. He claims that his UDS was positive for opiates and THC. He claims that he's been using heroin approximately half a gram a day. He is currently expressing mild withdrawals including sweats. He states that his sleep and appetite are fair. He claims that he is having anxiety today. He is denying any paranoia. Patient denies any suicidal or homicidal ideations intent or plan. At this time patient denies any auditory or visual hallucinations. Patient denies any flight of ideas racing thoughts and increased in goal directed behavior. Patient admits to using heroin as mentioned above. He states that he smokes cigarettes daily and also marijuana occasionally. PAST PSYCHIATRIC HISTORY: Patient states that his history of bipolar disorder. He claims that he is currently on Abilify, Wellbutrin and Klonopin. Patient denies any previous psychiatric hospitalizations. Patient denies any psychiatric outpatient follow-up. Patient denies any history of suicide attempts in the past. PMH:denies ALLERGIES: as per EMR CHEMICAL DEPENDENCY HISTORY: as per HPI FAMILY PSYCHIATRIC/SUBSTANCE USE HISTORY: He states that his grandmother has depression SOCIAL HISTORY: Patient was born and raised in [place]. He states that he completed up to 11th grade in school and then dropped out. 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 He claims that he has been to senior living for "breaking and entering". He lives in a three-quarter house is single and has 1. MENTAL STATUS EXAM: General Appearance: Patient appears to have multiple tattoos, well-built, stated age is alert, directable, and attempts to cooperate. Patient appears to have poor hygiene and grooming. Behavior: Patient is seated without any agitated behavior. Speech: Patient's speech is fluent and nonpressured. Mood/Affect: Patient reports their mood is depressed, affect is congruent and constricted. Suicidality/Homicidality: Patient denies having any homicidal ideation intent or plan. Denies any suicidal ideations intent or plan Perceptions: Patient denies any visual hallucinations and denies any auditory hallucinations Though content/process: There is no evidence of any delusional thought content and thought process is linear and goal-directed. [place] Memory and concentration: AOX3, grossly intact for the purposes of this session. Can spell "WORLD" backwards Judgment and insight: poor STRENGTHS/WEAKNESSES: strength is that patient is resilient. Weakness is that patient has poor judgment and is impulsive INTELLECT: average IMPRESSIONS: Bipolar disorder disorder, current episode depressed Opiate use disorder, currently in withdrawal Cannabis use disorder mild Nicotine dependence PLAN: -Patient is admitted under voluntary status to MHU for stabilization of psychiatric symptoms and safety. Patient has signed adult voluntary form and medication consent and is placed in patient's chart. -Medications : Will start patient on Wellbutrin 150 mg daily for mood. Abilify 15 mg daily for mood stabilization. Klonopin 1 mg twice a day for anxiety. -Vistaril and Haldol PRN for agitation/aggression -Patient was counselled on substance abuse and desired to cut back on use -Patient was informed of the risks, benefits and side effects of the medication and patient verbally consented to taking the medications. Patient signed med consent form and was placed in chart. -Internal Medicine consult to perform medical evaluation and physical. -NRT - nicotine patch -SW on board for discharge planning. Encourage patient to participate in groups to work on coping skills. We'll continue to speak with patient about substance use rehab and other substance use treatment options.
[2021-07-26 16:12] LABS: Chol/HDL Ratio 5.06 Ratio; LDL Cholesterol,Calculated 102.8 mg/dL (0.0-131.0); VLDL Calculation 23.2 mg/dL (5.00-40.00)
[2021-07-26] MEDS ORDERED: traZODone HCL 100 MG TAB PO PRN (21:55)
[2021-07-27] MEDS: NICOTINE GUM (POLACRILEX) 2 MG GUM BUCCAL PRN ×5 (00:48→13:00)
[2021-07-27 00:54] VITALS: BP 114/68; PULSE 83; RESP 14; TEMP 97.6
[2021-07-27] MEDS: hydrOXYzine pamoate 25 MG CAP PO PRN (03:06)
[2021-07-27] MEDS: buPROPion XL 150 MG TAB.ER.24H PO SCH (08:29)
[2021-07-27] MEDS: ARIPiprazole 15 MG TAB PO SCH (08:29)
[2021-07-27] MEDS: clonazePAM 1 MG TAB PO SCH (08:29)
--- NOTE | 2021-07-27 11:38 | P.DS ---
Providers Date of admission: 07/25/21 13:23 Expected date of discharge: 07/27/21 Attending physician: Genaro Perry MD Consults: 07/25/21 13:36 Consult Physician Routine Consulting Provider: Lamont Mack Consult Reason/Comments: history and physical/medical management Do you want consulting provider notified?: Yes Primary care physician: Pablito Valdez - Discharge Diagnosis(es) (1) Bipolar disorder current episode depressed Current Visit: Yes Status: Acute Priority: High (2) Opioid use disorder Current Visit: Yes Status: Acute Priority: High (3) Cannabis use disorder, mild, abuse Current Visit: Yes Status: Acute Priority: Medium (4) Nicotine dependence Current Visit: Yes Status: Acute Priority: Low Hospital Course: Admission HPI: Admission note was completed by service writer advisor "Patient is a 30-year-old male who currently lives at a three-quarter house is single as 20 and is unemployed. She used to work in construction. Patient presented to the hospital yesterday and was complaining of depression and suicidal ideations and having been off his medications. EPS nurse petition patient claiming that he was depressed and having suicidal thoughts and also is carrying around a knife. Patient was admitted on a petition and certificate last night and agreeable to speak to service writer advisor today. He appears to have a constricted affect and claims that he was d ealing with depression and not taking his medications. He states that he was finding it difficult to get into his primary care physician's office to get his medications refilled. He states that his PCP is in [place]. He states that he was on Abilify, Klonopin and Wellbutrin. He states that he was feeling suicidal for the past 2 days on and off however is not feeling any suicidal thoughts today. He claims that his UDS was positive for opiates and THC. He claims that he's been using heroin approximately half a gram a day. He is currently expressing mild withdrawals including sweats. He states that his sleep and appetite are fair. He claims that he is having anxiety today. He is denying any paranoia.Patient denies any suicidal or homicidal ideations intent or plan. At this time patient denies any auditory or visual hallucinations. Patient denies any flight of ideas racing thoughts and increased in goal directed behavior. Patient admits to using heroin as mentioned above. He states that he smokes cigarettes daily and also marijuana occasionally." Hospital course: Upon admission to the unit patient was directable and agreeable to commence treatment and signed adult voluntary form . Patient got along well with other patients on the unit and followed unit protocol. Patient was compliant with the medications and denied any side effects throughout hospital course. Patient was started on his home dose of Abilify 15 mg daily for mood stabilization, restarted back on Wellbutrin XL 150 mg daily for mood, Klonopin 1 mg twice a day for anxiety was restarted. Trazodone 100 mg daily at bedtime when necessary for insomnia, Vistaril 25 mg twice a day when necessary for anxiety. Patient spoke of his stressors and engaged in therapy both group and individual. Patient was also seen by medical team for history and physical exam. Throughout the course of the hospitalization patient gradually improved with regards to mood, anxiety, sleep and returned back to their baseline level of functioning. On the day of discharge patient denied any suicidal or homicidal ideations intent or plan denied any auditory or visual hallucinations. Patient endorsed wanting to live for his future and his sobriety. The patient denied any access to guns or weapons. Patient denied any paranoia and did not endorse any delusions. Patient does have a significant history of substance abuse and was counseled on abstaining from all substances including alcohol and marijuana. Patient had set up a [facility] intake appointment for tomorrow and claims that his friend will be taking him there to that appointment for inpatient rehab. Patient was also counseled on the medications and need for regular compliance and was encouraged to follow-up with their outpatient appointment for mental health and also for primary care. call worker to confirm patient's [facility] appointment and also confirmed that patient is allowed back at the three-quarter house where he was previously staying. Mental status exam: General Appearance: Patient appears to have multiple tattoos, stated age is alert, pleasant, and cooperative. Patient is in no acute distress and has improved hygiene and grooming Behavior: Patient is calmly seated without any agitated behavior. Speech: Patient's speech is fluent and nonpressured. Mood/Affect: Patient reports their mood is "better", affect is congruent and euthymic. Suicidality/Homicidality: Patient denies having any suicidal or homicidal ideation intent or plan. Perceptions: Patient denies any auditory or visual hallucinations. Though content/process: There is no evidence of any delusional thought content and thought process is linear and goal-directed. more future oriented Memory and concentration: AOX3, grossly intact for the purposes of this session. Can spell "WORLD" backwards correctly. Judgment and insight: chronically poor, however has improved with guarded prognosis Impression: Bipolar disorder, current episode depressed Opioid use disorder, cannabis use disorder mild Nicotine dependence Plan: -Continue with discharge today as patient has improved and stabilized psychiatrically and is not currently an imminent threat to himself and/or others. Patient will remain at chronically elevated risk for harm to self and/or others due to his polysubstance abuse. -Continue medications: Continue Abilify 15 mg daily for mood stabilization, Wellbutrin XL 150 mg daily for mood, Klonopin 1 mg twice a day when necessary for anxiety (he will be given a 10 day supply of this), trazodone 100 mg daily at bedtime when necessary for insomnia, Vistaril 25 mg twice a day when necessary for anxiety. -Patient was counseled on the need for medication compliance and appropriate follow-up at mental health and also primary care for medical issues. Patient verbalized understanding and agreed. -Social work to arrange and confirm patient's discharge today [facility] and patient will be going to [facility] for his intake tomorrow. Social work also to arrange for patients follow up appointments with [facility] for psychiatric care along with follow up with primary care provider. -Patient counseled on abstaining from recreational drugs and marijuana and alcohol. Was informed/educated on the adverse effects on their physical and mental health. Patient verbally agreed and understood. -Patient was instructed to return to the hospital or seek immediate medical care if their psychiatric or medical symptoms do worsen or reoccur. Allergies Allergy/AdvReac Type Severity Reaction Status Date / Time No Known Allergies Allergy Verified 07/25/21 16:45 Laboratory Results WBC 5.8 k/uL (3.8-10.6) 07/24/21 14:09 RBC 4.51 m/uL (4.30-5.90) 07/24/21 14:09 Hgb 13.9 gm/dL (13.0-17.5) 07/24/21 14:09 Hct 39.3 % (39.0-53.0) 07/24/21 14:09 MCV 87.1 fL (80.0-100.0) 07/24/21 14:09 MCH 30.7 pg (25.0-35.0) 07/24/21 14:09 MCHC 35.2 g/dL (31.0-37.0) 07/24/21 14:09 RDW 13.4 % (11.5-15.5) 07/24/21 14:09 Plt Count 358 k/uL (150-450) 07/24/21 14:09 MPV 7.7 07/24/21 14:09 Neutrophils % 72 % 07/24/21 14:09 Lymphocytes % 22 % 07/24/21 14:09 Monocytes % 3 % 07/24/21 14:09 Eosinophils % 0 % 07/24/21 14:09 Basophils % 1 % 07/24/21 14:09 Neutrophils # 4.2 k/uL (1.3-7.7) 07/24/21 14:09 Lymphocytes # 1.3 k/uL (1.0-4.8) 07/24/21 14:09 Monocytes # 0.2 k/uL (0-1.0) 07/24/21 14:09 Eosinophils # 0.0 k/uL (0-0.7) 07/24/21 14:09 Basophils # 0.0 k/uL (0-0.2) 07/24/21 14:09 Sodium 137 mmol/L (137-145) 07/24/21 14:09 Potassium 4.6 mmol/L (3.5-5.1) 07/24/21 14:09 Chloride 102 mmol/L (98-107) 07/24/21 14:09 Carbon Dioxide 29 mmol/L (22-30) 07/24/21 14:09 Anion Gap 6 mmol/L 07/24/21 14:09 BUN 7 mg/dL (9-20) L 07/24/21 14:09 Creatinine 0.62 mg/dL (0.66-1.25) L 07/24/21 14:09 Est GFR (CKD-EPI)AfAm >90 (>60 ml/min/1.73 sqM) 07/24/21 14:09 Est GFR (CKD-EPI)NonAf >90 (>60 ml/min/1.73 sqM) 07/24/21 14:09 Glucose 119 mg/dL (74-99) H 07/24/21 14:[address] Glu mg/dL 108 07/24/21 01:09 Hemoglobin A1c 5.4 % (4.0-6.0) 07/24/21 01:09 Calcium 10.0 mg/dL (8.4-10.2) 07/24/21 14:09 Triglycerides 116.00 mg/dL (0.00-149.00) 07/24/21 01:09 Cholesterol 157.00 mg/dL (0.00-200.00) 07/24/21 01:09 LDL Cholesterol, Calc 102.8 mg/dL (0.0-131.0) 07/24/21 01:09 VLDL Cholesterol, Calc 23.20 mg/dL (5.00-40.00) 07/24/21 01:09 HDL Cholesterol 31.00 mg/dL (40.00-60.00) L 07/24/21 01:09 Cholesterol/HDL Ratio 5.06 Ratio 07/24/21 01:09 TSH 0.314 mIU/L (0.465-4.680) L 07/24/21 01:09 Urine Color Light Yellow 07/24/21 14:06 Urine Appearance Clear (Clear) 07/24/21 14:06 Urine pH 8.0 (5.0-8.0) 07/24/21 14:06 Ur Specific [place] 1.009 (1.001-1.035) 07/24/21 14:06 Urine Protein Negative (Negative) 07/24/21 14:06 Urine Glucose (UA) Negative (Negative) 07/24/21 14:06 Urine Ketones Negative (Negative) 07/24/21 14:06 Urine Blood Negative (Negative) 07/24/21 14:06 Urine Nitrite Negative (Negative) 07/24/21 14:06 Urine Bilirubin Negative (Negative) 07/24/21 14:06 Urine Urobilinogen <2.0 mg/dL (<2.0) 07/24/21 14:06 Ur Leukocyte Esterase Negative (Negative) 07/24/21 14:06 Urine Opiates Screen Detected (NotDetected) H 07/24/21 12:47 Ur Oxycodone Screen Not Detected (NotDetected) 07/24/21 12:47 Urine Methadone Screen Not Detected (NotDetected) 07/24/21 12:47 Ur Propoxyphene Screen Not Detected (NotDetected) 07/24/21 12:47 Ur Barbiturates Screen Not Detected (NotDetected) 07/24/21 12:47 U Tricyclic Antidepress Not Detected (NotDetected) 07/24/21 12:47 Ur Phencyclidine Scrn Not Detected (NotDetected) 07/24/21 12:47 Ur Amphetamines Screen Not Detected (NotDetected) 07/24/21 12:47 U Methamphetamines Scrn Not Detected (NotDetected) 07/24/21 12:47 U Benzodiazepines Scrn Not Detected (NotDetected) 07/24/21 12:47 Urine Cocaine Screen Not Detected (NotDetected) 07/24/21 12:47 U Marijuana (THC) Screen Detected (NotDetected) H 07/24/21 12:47 Coronavirus (PCR) Not Detected (Not Detectd) 07/24/21 12:14 Vital Signs Temp 97.6 F 07/27/21 00:52 Pulse 83 07/27/21 00:52 Resp 14 07/27/21 00:52 BP 114/68 07/27/21 00:52 Pulse Ox 99 07/25/21 15:29 Patient Condition at Discharge: Stable Plan - Discharge Summary Discharge Rx Participant: No New Discharge Prescriptions: New ARIPiprazole [Abilify] 15 mg PO DAILY 30 Days tab Nicotine Gum (Polacrilex) [Nicorette] 2 mg BUCCAL Q2HR PRN 28 Days PRN Reason: Nicotine Cravings hydrOXYzine pamoate [Vistaril] 25 mg PO BID PRN 14 Days cap PRN Reason: Anxiety traZODone HCL [Desyrel] 100 mg PO HS PRN 30 Days tab PRN Reason: Insomnia clonazePAM [KlonoPIN] 1 mg PO BID PRN 10 Days #20 tab PRN Reason: Anxiety buPROPion XL [Wellbutrin XL] 150 mg PO DAILY 30 Days tablet Discontinued clonazePAM 1 mg PO TID 4 Days #12 tab buPROPion HCL [Wellbutrin XL] 300 mg PO DAILY #4 tab ARIPiprazole [Abilify] 15 mg PO DAILY Discharge Medication List ARIPiprazole [Abilify] 15 mg PO DAILY 30 Days tab 07/27/21 [Rx] Nicotine Gum (Polacrilex) [Nicorette] 2 mg BUCCAL Q2HR PRN 28 Days 07/27/21 [Rx] buPROPion XL [Wellbutrin XL] 150 mg PO DAILY 30 Days tablet 07/27/21 [Rx] clonazePAM [KlonoPIN] 1 mg PO BID PRN 10 Days #20 tab 07/27/21 [Rx] hydrOXYzine pamoate [Vistaril] 25 mg PO BID PRN 14 Days cap 07/27/21 [Rx] traZODone HCL [Desyrel] 100 mg PO HS PRN 30 Days tab 07/27/21 [Rx] Follow up Appointment(s)/Referral(s): Pablito Valdez DO [Primary Care Provider] - 1-2 days Activity/Diet/Wound Care/Special Instructions: Activity and diet as tolerated. Avoid the use of street drugs and alcohol. Take all medications as prescribed. When you are in need of refills on your medications please contact your medical provider and/or outpatient psychiatrist to have this done. Please go to scheduled outpatient appointment for aftercare treatment. If symptoms return or become worse, call the crisis line at and/or go to the nearest emergency room for evaluation. Discharge Disposition: HOME SELF-CARE
== END 2021-07-27 13:46 | disposition home or self-care (01) | DRG 885 ==
LOC: EC 10:33 → 3MHU 07-25 13:23
PROVIDERS: ADMIT Psychiatry & Neurology Psychiatry; ATTEND Psychiatry & Neurology Psychiatry
DX: F31.30 Bipolar disorder, current episode depressed, mild or moderate severity, unspecified (principal); R45.851 Suicidal ideations; F11.13 Opioid abuse with withdrawal; Z20.822 Contact with and (suspected) exposure to COVID-19; T50.906A Underdosing of unspecified drugs, medicaments and biological substances, initial encounter; F41.9 Anxiety disorder, unspecified; G47.00 Insomnia, unspecified; F12.10 Cannabis abuse, uncomplicated; F17.210 Nicotine dependence, cigarettes, uncomplicated; Z71.6 Tobacco abuse counseling; Z79.899 Other long term (current) drug therapy; Z71.51 Drug abuse counseling and surveillance of drug abuser; Z71.41 Alcohol abuse counseling and surveillance of alcoholic; Z56.0 Unemployment, unspecified; Z86.711 Personal history of pulmonary embolism; Z87.39 Personal history of other diseases of the musculoskeletal system and connective tissue; Z98.890 Other specified postprocedural states; Z81.8 Family history of other mental and behavioral disorders
CPT/HCPCS: 36415; 80048; 80061; 80306; 81003; 82075; 83036; 84443; 85025; 87635; 99285